=== PATIENT | female | born 1985 | race Caucasian/White ===

== ENCOUNTER → 2018-01-20 13:10 | Outpatient (CLI) | payer MEDICAID, SELFPAY ==
--- NOTE | 2018-01-20 13:16 | US_ITS ---
STUDY: ULTRASOUND OF THE FEMALE PELVIS - COMPLETE REASON FOR EXAM: Female, 32 years old. Right lower quadrant pain. LMP: January 17, 2018. TECHNIQUE: Transvaginal TECHNICAL QUALITY: Adequate. COMPARISON: None. FINDINGS: The uterus is anteverted and is in a midline position. The uterus measures 7.4 cm x 4.4 cm x 3.7 cm. Normal uterine cervix. The endometrium measures 4.1 mm in thickness, and is hyperechoic. There is no demonstrated endometrial mass. There is no demonstrated myometrial mass. I.U.D. - The patient does not have an I.U.D. The right ovary is visualized. The right ovary measures 2.5 cm x 2.1 cm x 1.3 cm. There is no right ovarian cyst or ovarian mass. There is no visualized right adnexal mass or complex lesion. There is normal arterial and normal venous vascularity. The left ovary is visualized. The left ovary measures 3.3 cm x 2.0 cm x 1.4 cm. 2 dominant follicles are seen within the ovary. The larger measures 1.9 cm x 1.3 cm x 1.1 cm. There is no visualized left adnexal mass or complex lesion. There is normal arterial and normal venous vascularity. There is a moderate amount of fluid in the cul-de-sac. Polycystic ovary disease: No. US/Transvaginal Non- IMPRESSION: 2 dominant follicles are seen in the left ovary. Free fluid in the pelvis. Electronically Signed: Solomon Adair MD at 13:59 EST Tel [phone], Service support ,
== END ==
DX: R10.31 Right lower quadrant pain (principal)
CPT/HCPCS: 76830; 93976

== ENCOUNTER → 2019-04-14 | Outpatient (CLI) | payer MEDICAID, SELFPAY ==
[2019-04-19 12:28] LABS: HPV APTIMA, High Risk Negative (Negative)
== END | disposition home or self-care (01) ==
PROVIDERS: Referring Provider Obstetrics & Gynecology; Visit Provider Obstetrics & Gynecology
DX: Z12.4 Encounter for screening for malignant neoplasm of cervix (principal)
CPT/HCPCS: 87624; 88175; G0145

== ENCOUNTER → 2019-12-08 15:18 | Outpatient (CLI) | payer MEDICAID, SELFPAY ==
[2019-12-08 17:14] LABS: Free T3 2.8 pg/mL (2.18-3.98); T4 Free Direct 1.05 ng/dL (0.76-1.46); Thyroid Stim Hormone (TSH) 3.52 uIU/mL (0.358-3.74)
[2019-12-08 17:26] LABS: T3 Total - Triiodothyronine 1.11 ng/mL (0.6-1.81); Vitamin D,25 Hydroxy 30.9 ng/mL
[2019-12-10 16:08] LABS: Thyroid Peroxidase AB < 9 IU/mL (0-34)
[2019-12-10 16:22] LABS: Thyroglobulin Antibody < 1.0 IU/mL (0.0-0.9)
== END ==
PROVIDERS: Visit Provider Obstetrics & Gynecology
DX: E55.9 Vitamin D deficiency, unspecified (principal); E03.9 Hypothyroidism, unspecified
CPT/HCPCS: 36415; 82306; 84436; 84439; 84443; 84480; 84481; 86376; 86800

== ENCOUNTER 2021-12-22 13:19 | Emergency (ER) | payer MEDICAID, SELFPAY ==
[2021-12-22 13:20] VITALS: BP 123/94; PULSE 121; RESP 16; TEMP 36.3; O2SAT 98; BMI 22.7
[2021-12-22 13:23] VITALS: BP 123/94; PULSE 121; RESP 16; TEMP 36.3; O2SAT 98
--- NOTE | 2021-12-22 14:55 | EX.ED.DYSGE1 ---
HPI History of Present Illness Chief Complaint: Abscess Narrative Narrative: 35-year-old female with abscess to the right gluteal region. She states has been here for a couple of days. Denies any systemic signs or symptoms. She does note pain with defecation. She states it was initially draining and she has been taking sitz bath's. She is been trying to express the pus from it that felt like maybe it was not expressing anything. No history of MRSA. She does state this area is pretty painful to touch. PFSH PFSH Medical History no medical history Home Medications omega-3 fatty acids 1,000 mg capsule 1,000 mg PO DAILY 06/02/15 [History Last Taken 2 Weeks Ago ~06/15/15] vits no.130-ferrous fum 27 mg iron-folic acid 800 mcg tablet ( Vitamin) 1 ea PO DAILY 06/02/15 [History Last Taken 2 Weeks Ago ~06/15/15] docusate sodium 100 mg capsule (DOK) 100 mg PO BID PRN PRN Constipation ##60 06/30/15 [Rx Last Taken Unknown] ibuprofen 400 mg tablet 800 mg PO Q6H PRN PRN pain ##40 06/30/15 [Rx Last Taken Unknown] oxycodone-acetaminophen 5 mg-325 mg tablet (Percocet) 1 tab PO Q6H PRN pain 3 days #12 tabs 12/22/21 [Rx Last Taken Unknown] sulfamethoxazole 800 mg-trimethoprim 160 mg tablet (Bactrim DS) 1 tab PO BID #20 tabs 12/22/21 [Rx Last Taken Unknown] Allergy/AdvReac Type Severity Reaction Status Date / Time Penicillins Allergy Rash Verified 12/22/21 13:20 Social History Smoking Status: Never smoker ROS ROS ED Constitutional Constitutional ED: Denies chills or fever(s) Eyes Eyes: Denies change in vision or diplopia ENT ENT ED: Denies rhinorrhea or sore throat Cardiovascular Cardiovascular: Denies chest pain or palpitations Respiratory/Chest Respiratory/Chest: Denies cough or dyspnea Gastrointestinal Gastrointestinal: Denies abdominal pain or constipation Genitourinary Genitourinary ED: Denies dysuria or hematuria Musculoskeletal Musculoskeletal: Denies arthralgias or back pain Integumentary Reports abscess and rash Neurologic Neurologic: Denies headache(s) or paresthesias Psychiatric Psychiatric: Denies anxiety or depression EXAM Physical Exam Const Vital Signs: 12/22/21 13:20 12/22/21 13:23 Temperature 97.4 F L 97.4 F L Temperature Source Temporal Temporal Pulse Rate 121 H 121 H Respiratory Rate 16 16 Blood Pressure 123/94 H 123/94 H Blood Pressure Mean 103 103 Pulse Ox 98 98 Oxygen Delivery Method Room Air Room Air Positive well nourished General Appearance ED: NAD HEENT Reports moist mucous membranes Eyes PERRL and EOMs intact bilaterally Neck no lymphadenopathy Resp normal respiratory effort Cardio regular rate Rate: tachycardic GI normal to inspection, nondistended, normoactive bowel sounds Extremity normal to inspection Neuro oriented x3 and CN's II-XII intact bilaterally Sensorium / Orientation: alert Psych mental status grossly normal Skin Skin Narrative: 4cm circular abscess on the right gluteal region which does not involve the rectum. There is surrounding cellulitis around this. Central region has a large draining area with purulent discharge. MDM MDM MDM Narrative Medical decision making narrative: Patient presents with a spontaneously draining abscess on the right gluteal region. It is tender to palpation with surrounding cellulitis. I offered the patient incision and drainage however she seems a little bit hesitant to do this. I did skilled nursing facility counselor her that it is open and draining and she could continue to try to do sitz bath's and we could cover her with antibiotics. I did offer her surgical referral and she is amenable to this. I spoke with Dr. Obando. She felt it was open and draining she could follow her up in the office. She recommended putting her on antibiotics. She was given oxycodone for pain. First dose was in the ER. Return precautions were discussed. Impression: 1. Right gluteal abscess 2. Right gluteal cellulitis Discharge Plan Triage Chief Complaint: Abscess ED Provider: Gene Galvin Dx/Rx/DC Orders Instructions: ED Abscess Antibiotic Treatment Only Prescriptions: New sulfamethoxazole-trimethoprim [Bactrim DS] 800-160 mg tablet 1 tab PO BID Qty: 20 0RF oxycodone-acetaminophen [Percocet] 5-325 mg tablet 1 tab PO Q6H PRN (Reason: pain) 3 Days Qty: 12 0RF No Action vit no.[id number] [ Vitamin] 1 EACH tablet 1 ea PO DAILY omega-3 fatty acids 1,000 MG capsule 1,000 mg PO DAILY ibuprofen 400 MG tablet 800 mg PO Q6H PRN PRN (Reason: pain) Qty: 40 0RF docusate sodium [DOK] 100 MG capsule 100 mg PO BID PRN PRN (Reason: Constipation) Qty: 60 1RF Primary Care Provider: Care Physician,No Primary Referrals: Roxanne Obando MD [Med Staff - Active Staff] - As soon as possible Care Physician,No Primary [Primary Care Provider] - Disposition Disposition: Home, Self Care
[2021-12-22] MEDS: oxyCODONE 5 MG Tablet PO (15:11)
[2021-12-22] MEDS: Smz/Tmp Ds Tablet 1 TABLET PO (15:12)
[2021-12-22 15:15] VITALS: BP 121/87; PULSE 118; RESP 17; TEMP 36.7; O2SAT 98
== END 2021-12-22 15:23 | disposition home or self-care (01) ==
PROVIDERS: Emergency Provider Student in an Organized Health Care Education/Training Program; Visit Provider Student in an Organized Health Care Education/Training Program
DX: L02.31 Cutaneous abscess of buttock (principal); L03.317 Cellulitis of buttock
CPT/HCPCS: 99283